=== PATIENT | male | born 1940 | race Caucasian/White ===

== ENCOUNTER 2016-08-11 14:45 | Emergency (ER) | payer OTHER ==
--- NOTE | 2016-08-11 16:22 | DIAGNOSTIC IMAGING REPORT ---
PROCEDURE: XR CHEST 1 VIEW INDICATION: CHEST PAIN TECHNIQUE: Portable AP view 04:06 p.m. COMPARISON: Chest 09/23/2012 FINDINGS: Lungs are clear. Heart and mediastinum are normal. Thorax is normal. IMPRESSION: 1. Negative chest.
--- NOTE | 2016-08-11 17:08 | ED NURSING NOTES ---
Clinical Report - Nurses [facility] [address] [place] [address] 08/11/2016 14:46 Patient: TAISHA CARDONA TRIAGE Triage time 14:48 Aug 11 2016. Acuity: LEVEL 2. --14:49 Anette Gilman R.N. Acuity: LEVEL 2. Chief Complaint: CHEST PAIN and DISCOMFORT. Alert. No acute distress. (anxious, swearing). --15:08 Anette Gilman R.N. 14:55 08/11/16. BP: 153/102. HR: 66. RR: 18. O2 saturation: 99%. Temp: 98.2 F. Pain level now 6/10. --15:08 Anette Gilman R.N. 15:45 08/11/16. BP: 194/77. HR: 56. RR: 16. O2 saturation: 98% on room air. Temp: deferred. Pain level now: 5/10. Additional comments: 5 now, was a 10 at home about 1 hour ago . --15:59 Milly Lira R.N. Weight: 90.7 kg stated. Height/Length: 71 inches Per Patient. BMI: 27.9. --14:48 Anette Gilman R.N. Medications ASA Oral 81mg, daily. Atenolol Oral 100 mg, daily. Benazepril HCl Oral 5 mg daily. Cacitrol 25 mg capsules, 2 caps daily. CoQ-10 Oral 1 daily. Furosemide Oral 20 mg, 3 tabs, daily. GuanFACINE HCl Oral (Tablet 2 mg) 1 tablet. HCTZ 25mg, daily. Lipitor Oral 20 mg, at bedtime. Potassimin Oral 14 tabs, 10meq/tab, daily (pt states he doesnt take them all the time). Pt poor historian.. Urolic 1.5 tabs of 80mg/tab, daily. Vitamin D Oral (Tablet 1000 unit) 1 tablet, daily. --14:52 Anette Gilman R.N. Zetia Oral (Tablet 10 mg) 1 tablet, daily. --14:52 Anette Gilman R.N. GuanFACINE HCl Oral (Tablet 2 mg). --15:06 Anette Gilman R.N. zoloft 25mg BID. --15:57 Milly Lira R.N. (med list up to date). --15:08 Anette Gilman R.N. Allergies morphine. --14:54 Anette Gilman R.N. History Arrived by private vehicle. --14:49 Anette Gilman R.N. Primary physician (Dr. hCapman, Cardiology /Dr. Mccarty is PCP). 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 Changed BP meds. Has had a Halter monitor in the passed. Today, CP started about 1430, watching TV, no activity. Sudden onset on the Left Pectoral Pain, 12/10. 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 This started just prior to arrival. He has had difficulty breathing. Treatment SALES OPERATIONS ASSISTANT: Took aspirin. (81mg SALES OPERATIONS ASSISTANT). SOCIAL HX: Never smoker. No alcohol use or drug use. FALL RISK ASSESSMENT: Fall risk assessment completed. No fall risk identified. NUTRITIONAL RISK ASSESSMENT: The nutritional risk assessment revealed no deficiencies. FUNCTIONAL ASSESSMENT: Functional assessment: no impairments noted. LEARNING NEEDS ASSESSMENT: The learning needs assessment revealed no barriers. SKIN INTEGRITY ASSESSMENT: Skin integrity risk assessment completed. No skin integrity risk identified. --15:08 Anette Gilman R.N. ( Pt has had significant work up over last 2 months with Negative echo and negative stress test). --15:59 Milly Lira R.N. ( Pt states symptoms have gotten worse since medication was changed). --16:01 Milly Lira R.N. PROBLEMS: Hyperlipidemia. Chronic Kidney. Exertional Chest Pain. --14:57 Anette Gilman R.N. Interventions ID band on patient. To room. --14:49 Anette Gilman R.N. ID band on patient. To room. --15:08 Anette Gilman R.N. NURSING PROGRESS NOTES EKG time: (14:53 PM). --15:10 Anette Gilman R.N. Blood samples drawn by lab per protocol: rainbow set. --15:11 Anette Gilman R.N. ( pt's blood drawn while in triage.). --15:11 Anette Gilman R.N. 15:11 08/11/16. BP: 198/100. --15:11 Anette Gilman R.N. EKG time: (0243). EKG was performed by a tech and shown to the ED physician. --15:15 Lance Lan. DISPOSITION / DISCHARGE 17:20. Condition at departure: improved and stable. No learning barriers present. Discharge instructions provided and reviewed with the patient and spouse. Reviewed medication(s) (tramadol). Patient and spouse verbalized understanding. Written instructions provided in Upper Sorbian. The patient was discharged home and accompanied by spouse. He left the Emergency Department ambulatory and via private vehicle. Spouse driving. --17:30 Milly Lira R.N. 17:20 08/11/16. BP: 179/79. HR: 52. RR: 18. O2 saturation: 100%. Temp: deferred. Pain level now: 11/09. --17:30 Milly Lira R.N. Departure time: 17:52 Aug 11 2016. --17:52 Anette Gilman R.N. Locked/Released at 08/11/2016 17:52 by Anette Gilman R.N.
--- NOTE | 2016-08-11 17:08 | ED ORDER SUMMARY ---
..... Patient: TAISHA CARDONA OrderSheet [facility] VisitID: [id number] [place] [address] 76y, M Registration Date/Time: 08/11/2016 ORDER SHEET Weight: 90.7 kg (stated) Allergies: morphine GENERAL ORDERS: Dead Mail Checker (Continuous) (15:10 08/11/2016 SBalde R.N. per protocol) (Ack 15:13 TBergley) (15:56 DDean R.N.) Cardiac Panel Stat (15:10 08/11/2016 SBalde R.N. per protocol) (Ack 15:13 TBergley) (15:13 TBergley) Pulse oximeter (15:10 08/11/2016 SBalde R.N. per protocol) (Ack 15:13 TBergley) (15:56 DDean R.N.) EKG - ER Stat (15:10 08/11/2016 SBalde R.N. per protocol) (15:12 TBergley) Chest 1V Urgent (16:00 08/11/2016 DDean R.N. per protocol) (Ack 16:04 TBergley) (16:45 TBergley) MEDICATION ORDERS: IV FLUIDS: ORDER SHEET NOTES: [Electronically signed by Anette Gilman R.N. (17:52 08/11/2016)] [Electronically signed by Huber Warner Dr[address] (22:26 08/11/2016)] [Electronically locked/signed by Anette Gilman R.N. (17:52 08/11/2016)]
--- NOTE | 2016-08-11 17:08 | ED ORDER SUMMARY ---
..... Patient: TAISHA CARDONA OrderSheet [facility] VisitID: [id number] [place] [address] 76y, M Registration Date/Time: 08/11/2016 ORDER SHEET Weight: 90.7 kg (stated) Allergies: morphine GENERAL ORDERS: Rotary Drier Operator (Continuous) (15:10 08/11/2016 SBalde R.N. per protocol) (Ack 15:13 TBergley) (15:56 DDean R.N.) Cardiac Panel Stat (15:10 08/11/2016 SBalde R.N. per protocol) (Ack 15:13 TBergley) (15:13 TBergley) Pulse oximeter (15:10 08/11/2016 SBalde R.N. per protocol) (Ack 15:13 TBergley) (15:56 DDean R.N.) EKG - ER Stat (15:10 08/11/2016 SBalde R.N. per protocol) (15:12 TBergley) Chest 1V Urgent (16:00 08/11/2016 DDean R.N. per protocol) (Ack 16:04 TBergley) (16:45 TBergley) MEDICATION ORDERS: IV FLUIDS: ORDER SHEET NOTES: [Electronically signed by Anette Gilman R.N. (17:52 08/11/2016)] [Electronically signed by Huber Warner Dr[address] (22:26 08/11/2016)] [Electronically locked/signed by Anette Gilman R.N. (17:52 08/11/2016)]
--- NOTE | 2016-08-11 17:08 | ED NURSING NOTES ---
Clinical Report - Nurses [facility] [address] [place] [address] 08/11/2016 14:46 Patient: TAISHA CARDONA TRIAGE Triage time 14:48 Aug 11 2016. Acuity: LEVEL 2. --14:49 Anette Gilman R.N. Acuity: LEVEL 2. Chief Complaint: CHEST PAIN and DISCOMFORT. Alert. No acute distress. (anxious, swearing). --15:08 Anette Gilman R.N. 14:55 08/11/16. BP: 153/102. HR: 66. RR: 18. O2 saturation: 99%. Temp: 98.2 F. Pain level now 6/10. --15:08 Anette Gilman R.N. 15:45 08/11/16. BP: 194/77. HR: 56. RR: 16. O2 saturation: 98% on room air. Temp: deferred. Pain level now: 5/10. Additional comments: 5 now, was a 10 at home about 1 hour ago . --15:59 Milly Lira R.N. Weight: 90.7 kg stated. Height/Length: 71 inches Per Patient. BMI: 27.9. --14:48 Anette Gilman R.N. Medications ASA Oral 81mg, daily. Atenolol Oral 100 mg, daily. Benazepril HCl Oral 5 mg daily. Cacitrol 25 mg capsules, 2 caps daily. CoQ-10 Oral 1 daily. Furosemide Oral 20 mg, 3 tabs, daily. GuanFACINE HCl Oral (Tablet 2 mg) 1 tablet. HCTZ 25mg, daily. Lipitor Oral 20 mg, at bedtime. Potassimin Oral 14 tabs, 10meq/tab, daily (pt states he doesnt take them all the time). Pt poor historian.. Urolic 1.5 tabs of 80mg/tab, daily. Vitamin D Oral (Tablet 1000 unit) 1 tablet, daily. --14:52 Anette Gilman R.N. Zetia Oral (Tablet 10 mg) 1 tablet, daily. --14:52 Anette Gilman R.N. GuanFACINE HCl Oral (Tablet 2 mg). --15:06 Anette Gilman R.N. zoloft 25mg BID. --15:57 Milly Lira R.N. (med list up to date). --15:08 Anette Gilman R.N. Allergies morphine. --14:54 Anette Gilman R.N. History Arrived by private vehicle. --14:49 Anette Gilman R.N. Primary physician (Dr. Chapman, Cardiology /Dr. Mccarty is PCP). 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 Changed BP meds. Has had a Halter monitor in the passed. Today, CP started about 1430, watching TV, no activity. Sudden onset on the Left Pectoral Pain, 12/10. 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 This started just prior to arrival. He has had difficulty breathing. Treatment FULL STACK ENGINEER: Took aspirin. (81mg FULL STACK ENGINEER). SOCIAL HX: Never smoker. No alcohol use or drug use. FALL RISK ASSESSMENT: Fall risk assessment completed. No fall risk identified. NUTRITIONAL RISK ASSESSMENT: The nutritional risk assessment revealed no deficiencies. FUNCTIONAL ASSESSMENT: Functional assessment: no impairments noted. LEARNING NEEDS ASSESSMENT: The learning needs assessment revealed no barriers. SKIN INTEGRITY ASSESSMENT: Skin integrity risk assessment completed. No skin integrity risk identified. --15:08 Anette Gilman R.N. ( Pt has had significant work up over last 2 months with Negative echo and negative stress test). --15:59 Milly Lira R.N. ( Pt states symptoms have gotten worse since medication was changed). --16:01 Milly Lira R.N. PROBLEMS: Hyperlipidemia. Chronic Kidney. Exertional Chest Pain. --14:57 Anette Gilman R.N. Interventions ID band on patient. To room. --14:49 Anette Gilman R.N. ID band on patient. To room. --15:08 Anette Gilman R.N. NURSING PROGRESS NOTES EKG time: (14:53 PM). --15:10 Anette Gilman R.N. Blood samples drawn by lab per protocol: rainbow set. --15:11 Anette Gilman R.N. ( pt's blood drawn while in triage.). --15:11 Anette Gilman R.N. 15:11 08/11/16. BP: 198/100. --15:11 Anette Gilman R.N. EKG time: (1483). EKG was performed by a tech and shown to the ED physician. --15:15 Lance Lan. DISPOSITION / DISCHARGE 17:20. Condition at departure: improved and stable. No learning barriers present. Discharge instructions provided and reviewed with the patient and spouse. Reviewed medication(s) (tramadol). Patient and spouse verbalized understanding. Written instructions provided in Nepali. The patient was discharged home and accompanied by spouse. He left the Emergency Department ambulatory and via private vehicle. Spouse driving. --17:30 Milly Lira R.N. 17:20 08/11/16. BP: 179/79. HR: 52. RR: 18. O2 saturation: 100%. Temp: deferred. Pain level now: 11/09. --17:30 Milly Lira R.N. Departure time: 17:52 Aug 11 2016. --17:52 Anette Gilman R.N. Locked/Released at 08/11/2016 17:52 by Anette Gilman R.N.
--- NOTE | 2016-08-11 17:08 | ED CLINICAL REPORT ---
Clinical Report - Physicians/Mid Levels [facility] [address] [place] [address] 08/11/2016 14:46 Patient: TAISHA CARDONA Time Seen: 16:35; initial patient contact. Arrived- By private vehicle. Historian- patient. HISTORY OF PRESENT ILLNESS Chief Complaint: CHEST PAIN. At its maximum, severity described as moderate. When seen in the E.D., severity described as mild. It is described as "pain" and it is described as located in the left chest area. No radiation. This started today and is still present. No nausea, vomiting, difficulty breathing or diaphoresis. No additional chest pain. Similar symptoms previously: Once. Recent medical care: The patient was seen recently and hospitalized. ( Prov 1 week ago, normal nuclear stress and echo.). REVIEW OF SYSTEMS No cough, pedal edema, calf pain, fainting episodes or abdominal pain. All systems otherwise negative, except as recorded above. PAST HISTORY Hyperlipidemia. Chronic Kidney. Exertional Chest Pain. --. Medications: zoloft 25mg BID. GuanFACINE HCl Oral (Tablet 2 mg). Zetia Oral (Tablet 10 mg) 1 tablet, daily. ASA Oral 81mg, daily. Atenolol Oral 100 mg, daily. Benazepril HCl Oral 5 mg daily. Cacitrol 25 mg capsules, 2 caps daily. CoQ-10 Oral 1 daily. Furosemide Oral 20 mg, 3 tabs, daily. GuanFACINE HCl Oral (Tablet 2 mg) 1 tablet. HCTZ 25mg, daily. Lipitor Oral 20 mg, at bedtime. Potassimin Oral 14 tabs, 10meq/tab, daily (pt states he doesnt take them all the time). Pt poor historian.. Urolic 1.5 tabs of 80mg/tab, daily. Vitamin D Oral (Tablet 1000 unit) 1 tablet, daily. Allergies: morphine. SOCIAL HISTORY Never smoker. No alcohol use or drug use. ADDITIONAL NOTES The nursing notes have been reviewed with agreement regarding the chief complaint, PMH and patient medications and allergies. PHYSICAL EXAM Vital Signs: 08/11/2016 14:55 BP: 153/102. HR: 66. RR: 18. O2 saturation: 99%. Temp: 98.2 F. Have been reviewed. Hypertensive. Tachycardic. Respiratory rate normal. Temperature normal. Oxygen saturation normal. Appearance: Alert. Oriented X3. No acute distress. Eyes: Eyes normal inspection. ENT: Pharynx normal. CVS: Normal heart rate and rhythm. Heart sounds normal. Respiratory: Chest pain reproducible with palpation of the costochondral junction. Mild left upper costochondral tenderness. Abdomen: Soft and nontender. Bowel sounds normal. Skin: Skin warm and dry. Normal skin color. No rash. Extremities: No calf tenderness. No lower extremity edema. Neuro: Oriented X 3. LABS, X-RAYS, AND EKG EKG: EKG time: (1453). No acute process. No acute ischemia. Normal EKG. Normal sinus rhythm. Rate: 63. Normal P waves. Normal MUKESH. Normal QRS complex. Normal axis. Normal ST and T waves and QT. Prior EKG unavailable. The study has been interpreted contemporaneously by me. The study has been independently viewed by me. The EKG appears to be a good tracing. Interpretation time: 1453. Chest X-ray: No acute disease. Normal lung markings present. No infiltrate. Views: AP. The X-rays were independently viewed by me and interpreted contemporaneously by me. A comparison with prior films reveals that the findings are unchanged. Laboratory Tests: CBC w Diff: (AQUILES: 08/11/2016 14:56) ( MsgRcvd 08/11/2016 15:20) Final results Test Result Flag Units (Reference) WHITE BLOOD COUNT 7.6 K/uL (4.5-11.5) RED BLOOD COUNT 5.39 M/uL (4.50-5.90) HEMOGLOBIN 16.0 gm/dL (13.5-17.5) HEMATOCRIT 48.4 % (41.0-53.0) MEAN CELL VOLUME 90 fL (80-100) MEAN CORPUSCULAR HGB 30 pg (26-34) MEAN CORPUSCULAR HGB CONC 33 g/dL (31-37) RED CELL DISTRIBUTION WIDTH 13.8 % (11.6-14.8) PLATELET COUNT 256 K/uL (150-400) LYMPH % 32.4 % (25-40) MONO % 5.8 % (3-14) GRANULOCYTE % 61.8 CHEM 13 PANEL: (AQUILES: 08/11/2016 14:56) ( MsgRcvd 08/11/2016 15:33) Final results Test Result Flag Units (Reference) GLUCOSE 137 H mg/dL (70-110) BUN 24 H mg/dL (7-18) CREATININE 1.4 H mg/dL (0.6-1.3) Estimated GFR 52.51 mL/min Estimated GFR- >60 mL/min Note: Persistent reduction over 3 months in eGFR<60 mL/min/1.73 m2 defines CKD. Patients with eGFR values>=60 mL/min/1.73 m2 may also have CKD if evidence ofpersistent proteinuria. Additional information may be foundat www.kidney.org. SODIUM 143 mmol/L (136-145) POTASSIUM 3.7 mmol/L (3.5-5.1) CHLORIDE 107 mmol/L (98-107) CARBON DIOXIDE 23 mmol/L (21-32) CALCIUM 9.3 mg/dL (8.5-10.1) TOTAL PROTEIN 7.3 g/dL (6.4-8.2) ALBUMIN 4.4 g/dL (3.3-5.0) BILIRUBIN, TOTAL 0.8 mg/dL (0.0-1.0) ALKALINE PHOSPHATASE 66 U/L (46-116) AST (SGOT) 24 U/L (15-37) ALT (SGPT) 52 U/L (12-78) CPK 79 U/L (24-260) MAGNESIUM 2.2 mg/dL (1.8-2.4) TROPONIN I <0.05 L ng/mL (0.00-1.5) TROPONIN REFERENCE RANGE:<0.1 NEGATIVE0.1-1.5 INDETERMINANT>1.5 POSITIVE . PROGRESS AND PROCEDURES Disposition: Discharged home in good condition. Condition: good. CLINICAL IMPRESSION Costochondritis .12 lead EKG performed. INSTRUCTIONS Your Current Medications: CONTINUE TAKING THE FOLLOWING MEDICATIONS: ASA Oral : 81mg daily. Atenolol Oral : 100 mg daily. Benazepril HCl Oral : 5 mg daily. Cacitrol* : 25 mg capsules, 2 caps daily. CoQ-10 Oral : 1 daily. Furosemide Oral : 20 mg, 3 tabs daily. GuanFACINE HCl Oral : Tablet 2 mg, 1 tablet. GuanFACINE HCl Oral : Tablet 2 mg. HCTZ* : 25mg daily. Lipitor Oral : 20 mg at bedtime. Potassimin Oral : 14 tabs, 10meq/tab daily, pt states he doesnt take them all the time. Pt poor historian.*. Urolic* : 1.5 tabs of 80mg/tab daily. Vitamin D Oral : Tablet 1000 unit, 1 tablet daily. Zetia Oral : Tablet 10 mg, 1 tablet daily. zoloft 25mg BID*. Prescription Medications: Tramadol 50 mg: take 1 orally every 6 hours as needed for pain. Do not take more than 8 tablets in a 24 hour period. Dispense twenty (20). No refills. Follow-up: Blood pressure screening was not performed during this visit because the patient has an active diagnosis of hypertension. (Electronically signed by Huber Warner Dr. 08/11/2016 22:26)
--- NOTE | 2016-08-11 22:26 | ED DISCHARGE INSTRUCTIONS ---
Patient: TAISHA CARDONA General Instructions [facility] VisitID: [id number] [place] [address] 76y, M Registration Date/Time: 08/11/2016 Costochondritis .12 lead EKG performed. INSTRUCTIONS Your Current Medications: CONTINUE TAKING THE FOLLOWING MEDICATIONS: ASA Oral : 81mg daily. Atenolol Oral : 100 mg daily. Benazepril HCl Oral : 5 mg daily. Cacitrol* : 25 mg capsules, 2 caps daily. CoQ-10 Oral : 1 daily. Furosemide Oral : 20 mg, 3 tabs daily. GuanFACINE HCl Oral : Tablet 2 mg, 1 tablet. GuanFACINE HCl Oral : Tablet 2 mg. HCTZ* : 25mg daily. Lipitor Oral : 20 mg at bedtime. Potassimin Oral : 14 tabs, 10meq/tab daily, pt states he doesnt take them all the time. Pt poor historian.*. Urolic* : 1.5 tabs of 80mg/tab daily. Vitamin D Oral : Tablet 1000 unit, 1 tablet daily. Zetia Oral : Tablet 10 mg, 1 tablet daily. zoloft 25mg BID*. Prescription Medications: Tramadol 50 mg: take 1 orally every 6 hours as needed for pain. Do not take more than 8 tablets in a 24 hour period. Dispense twenty (20). No refills. Follow-up: Blood pressure screening was not performed during this visit because the patient has an active diagnosis of hypertension. ADDITIONAL INFORMATION Tramadol Hydrochloride Oral tablet What is this medicine? TRAMADOL (TRA ma dole) is a pain reliever. It is used to treat moderate to severe pain in adults. How should I use this medicine? Take this medicine by mouth with a full glass of water. Follow the directions on the prescription label. If the medicine upsets your stomach, take it with food or milk. Do not take more medicine than you are told to take. Talk to your television maintenance man regarding the use of this medicine in children. Special care may be needed. What side effects may I notice from receiving this medicine? Side effects that you should report to your doctor or health manager critical care as soon as possible: allergic reactions like skin rash, itching or hives, swelling of the face, lips, or tongue breathing difficulties, wheezing confusion itching light headedness or fainting spells redness, blistering, peeling or loosening of the skin, including inside the mouth seizures Side effects that usually do not require medical attention (report to your doctor or health manager critical care if they continue or are bothersome): constipation dizziness drowsiness headache nausea, vomiting What may interact with this medicine? Do not take this medicine with any of the following medications: MAOIs like Carbex, Eldepryl, Marplan, Nardil, and Parnate This medicine may also interact with the following medications: alcohol or medicines that contain alcohol antihistamines benzodiazepines bupropion carbamazepine or oxcarbazepine clozapine cyclobenzaprine digoxin furazolidone linezolid medicines for depression, anxiety, or psychotic disturbances medicines for migraine headache like almotriptan, eletriptan, frovatriptan, naratriptan, rizatriptan, sumatriptan, zolmitriptan medicines for pain like pentazocine, buprenorphine, butorphanol, meperidine, nalbuphine, and propoxyphene medicines for sleep muscle relaxants naltrexone phenobarbital phenothiazines like perphenazine, thioridazine, chlorpromazine, mesoridazine, fluphenazine, prochlorperazine, promazine, and trifluoperazine procarbazine warfarin What if I miss a dose? If you miss a dose, take it as soon as you can. If it is almost time for your next dose, take only that dose. Do not take double or extra doses. Where should I keep my medicine? Keep out of the reach of children. Store at room temperature between 15 and 30 degrees C (59 and 86 degrees F). Keep container tightly closed. Throw away any unused medicine after the expiration date. What should I tell my health care provider before I take this medicine? They need to know if you have any of these conditions: brain tumor depression drug abuse or addiction head injury if you frequently drink alcohol containing drinks kidney disease or trouble passing urine liver disease lung disease, asthma, or breathing problems seizures or epilepsy suicidal thoughts, plans, or attempt; a previous suicide attempt by you or a family member an unusual or allergic reaction to tramadol, codeine, other medicines, foods, dyes, or preservatives or trying to get breast-feeding What should I watch for while using this medicine? Tell your doctor or health manager critical care if your pain does not go away, if it gets worse, or if you have new or a different type of pain. You may develop tolerance to the medicine. Tolerance means that you will need a higher dose of the medicine for pain relief. Tolerance is normal and is expected if you take this medicine for a long time. Do not suddenly stop taking your medicine because you may develop a severe reaction. Your body becomes used to the medicine. This does NOT mean you are addicted. Addiction is a behavior related to getting and using a drug for a non-medical reason. If you have pain, you have a medical reason to take pain medicine. Your doctor will tell you how much medicine to take. If your doctor wants you to stop the medicine, the dose will be slowly lowered over time to avoid any side effects. You may get drowsy or dizzy. Do not drive, use machinery, or do anything that needs mental alertness until you know how this medicine affects you. Do not stand or sit up quickly, especially if you are an older patient. This reduces the risk of dizzy or fainting spells. Alcohol can increase or decrease the effects of this medicine. Avoid alcoholic drinks. You may have constipation. Try to have a bowel movement at least every 2 to 3 days. If you do not have a bowel movement for 3 days, call your doctor or health manager critical care. Your mouth may get dry. Chewing sugarless gum or sucking hard candy, and drinking plenty of water may help. Contact your doctor if the problem does not go away or is severe. You have been given the following additional information: Tramadol Hydrochloride Oral tablet (Electronically signed by Huber Warner Dr. 08/11/2016 22:26)
--- NOTE | 2016-08-11 22:26 | ED MED RECONCILIATION SUMMARY ---
Patient: TAISHA CARDONA Medication Reconciliation Report [facility] VisitID: [id number] [address] [place] [address] 76y, M Registration Date/Time: 08/11/2016 Weight: 90.7 kg Height/Length: 71 in. BMI: 27.9 ALLERGIES: morphine The patient's Home Medications are listed below: CONTINUE TAKING THE FOLLOWING MEDICATIONS: ASA Oral 81mg, daily Atenolol Oral 100 mg, daily Benazepril HCl Oral 5 mg daily Cacitrol 25 mg capsules, 2 caps daily CoQ-10 Oral 1 daily Furosemide Oral 20 mg, 3 tabs, daily GuanFACINE HCl Oral (2 mg) 1 tablet GuanFACINE HCl Oral (2 mg) HCTZ 25mg, daily Lipitor Oral 20 mg, at bedtime Potassimin Oral 14 tabs, 10meq/tab, daily, pt states he doesnt take them all the time Pt poor historian. Urolic 1.5 tabs of 80mg/tab, daily Vitamin D Oral (1000 unit) 1 tablet, daily Zetia Oral (10 mg) 1 tablet, daily zoloft 25mg BID The source(s) of the original Home Medication information: med list up to date The following Medications were given to the patient in the Emergency Department: None. The following Medications were prescribed to the patient: Tramadol 50 mg: take 1 orally every 6 hours as needed for pain. Do not take more than 8 tablets in a 24 hour period. Dispense twenty (20). No refills. -- Huber Warner Dr[address]
--- NOTE | 2016-08-11 22:26 | ED MAR SUMMARY ---
..... Medication Administration Record [facility] [address] [place], [place] [id number] Patient: TAISHA CARDONA Visit ID: [id number] 76y, M Weight: 90.7 kg Height/Length: 71 in BMI: 27.9 ALLERGIES: morphine
--- NOTE | 2016-08-11 22:26 | ED DISCHARGE INSTRUCTIONS ---
Patient: TAISHA CARDONA General Instructions [facility] VisitID: [id number] [place] [address] 76y, M Registration Date/Time: 08/11/2016 Costochondritis .12 lead EKG performed. INSTRUCTIONS Your Current Medications: CONTINUE TAKING THE FOLLOWING MEDICATIONS: ASA Oral : 81mg daily. Atenolol Oral : 100 mg daily. Benazepril HCl Oral : 5 mg daily. Cacitrol* : 25 mg capsules, 2 caps daily. CoQ-10 Oral : 1 daily. Furosemide Oral : 20 mg, 3 tabs daily. GuanFACINE HCl Oral : Tablet 2 mg, 1 tablet. GuanFACINE HCl Oral : Tablet 2 mg. HCTZ* : 25mg daily. Lipitor Oral : 20 mg at bedtime. Potassimin Oral : 14 tabs, 10meq/tab daily, pt states he doesnt take them all the time. Pt poor historian.*. Urolic* : 1.5 tabs of 80mg/tab daily. Vitamin D Oral : Tablet 1000 unit, 1 tablet daily. Zetia Oral : Tablet 10 mg, 1 tablet daily. zoloft 25mg BID*. Prescription Medications: Tramadol 50 mg: take 1 orally every 6 hours as needed for pain. Do not take more than 8 tablets in a 24 hour period. Dispense twenty (20). No refills. Follow-up: Blood pressure screening was not performed during this visit because the patient has an active diagnosis of hypertension. ADDITIONAL INFORMATION Tramadol Hydrochloride Oral tablet What is this medicine? TRAMADOL (TRA ma dole) is a pain reliever. It is used to treat moderate to severe pain in adults. How should I use this medicine? Take this medicine by mouth with a full glass of water. Follow the directions on the prescription label. If the medicine upsets your stomach, take it with food or milk. Do not take more medicine than you are told to take. Talk to your band bias machine operator regarding the use of this medicine in children. Special care may be needed. What side effects may I notice from receiving this medicine? Side effects that you should report to your doctor or health adult care provider as soon as possible: allergic reactions like skin rash, itching or hives, swelling of the face, lips, or tongue breathing difficulties, wheezing confusion itching light headedness or fainting spells redness, blistering, peeling or loosening of the skin, including inside the mouth seizures Side effects that usually do not require medical attention (report to your doctor or health adult care provider if they continue or are bothersome): constipation dizziness drowsiness headache nausea, vomiting What may interact with this medicine? Do not take this medicine with any of the following medications: MAOIs like Carbex, Eldepryl, Marplan, Nardil, and Parnate This medicine may also interact with the following medications: alcohol or medicines that contain alcohol antihistamines benzodiazepines bupropion carbamazepine or oxcarbazepine clozapine cyclobenzaprine digoxin furazolidone linezolid medicines for depression, anxiety, or psychotic disturbances medicines for migraine headache like almotriptan, eletriptan, frovatriptan, naratriptan, rizatriptan, sumatriptan, zolmitriptan medicines for pain like pentazocine, buprenorphine, butorphanol, meperidine, nalbuphine, and propoxyphene medicines for sleep muscle relaxants naltrexone phenobarbital phenothiazines like perphenazine, thioridazine, chlorpromazine, mesoridazine, fluphenazine, prochlorperazine, promazine, and trifluoperazine procarbazine warfarin What if I miss a dose? If you miss a dose, take it as soon as you can. If it is almost time for your next dose, take only that dose. Do not take double or extra doses. Where should I keep my medicine? Keep out of the reach of children. Store at room temperature between 15 and 30 degrees C (59 and 86 degrees F). Keep container tightly closed. Throw away any unused medicine after the expiration date. What should I tell my health care provider before I take this medicine? They need to know if you have any of these conditions: brain tumor depression drug abuse or addiction head injury if you frequently drink alcohol containing drinks kidney disease or trouble passing urine liver disease lung disease, asthma, or breathing problems seizures or epilepsy suicidal thoughts, plans, or attempt; a previous suicide attempt by you or a family member an unusual or allergic reaction to tramadol, codeine, other medicines, foods, dyes, or preservatives or trying to get breast-feeding What should I watch for while using this medicine? Tell your doctor or health adult care provider if your pain does not go away, if it gets worse, or if you have new or a different type of pain. You may develop tolerance to the medicine. Tolerance means that you will need a higher dose of the medicine for pain relief. Tolerance is normal and is expected if you take this medicine for a long time. Do not suddenly stop taking your medicine because you may develop a severe reaction. Your body becomes used to the medicine. This does NOT mean you are addicted. Addiction is a behavior related to getting and using a drug for a non-medical reason. If you have pain, you have a medical reason to take pain medicine. Your doctor will tell you how much medicine to take. If your doctor wants you to stop the medicine, the dose will be slowly lowered over time to avoid any side effects. You may get drowsy or dizzy. Do not drive, use machinery, or do anything that needs mental alertness until you know how this medicine affects you. Do not stand or sit up quickly, especially if you are an older patient. This reduces the risk of dizzy or fainting spells. Alcohol can increase or decrease the effects of this medicine. Avoid alcoholic drinks. You may have constipation. Try to have a bowel movement at least every 2 to 3 days. If you do not have a bowel movement for 3 days, call your doctor or health adult care provider. Your mouth may get dry. Chewing sugarless gum or sucking hard candy, and drinking plenty of water may help. Contact your doctor if the problem does not go away or is severe. You have been given the following additional information: Tramadol Hydrochloride Oral tablet (Electronically signed by Huber Warner Dr. 08/11/2016 22:26)
--- NOTE | 2016-08-11 22:26 | ED MED RECONCILIATION SUMMARY ---
Patient: TAISHA CARDONA Medication Reconciliation Report [facility] VisitID: [id number] [address] [place] [address] 76y, M Registration Date/Time: 08/11/2016 Weight: 90.7 kg Height/Length: 71 in. BMI: 27.9 ALLERGIES: morphine The patient's Home Medications are listed below: CONTINUE TAKING THE FOLLOWING MEDICATIONS: ASA Oral 81mg, daily Atenolol Oral 100 mg, daily Benazepril HCl Oral 5 mg daily Cacitrol 25 mg capsules, 2 caps daily CoQ-10 Oral 1 daily Furosemide Oral 20 mg, 3 tabs, daily GuanFACINE HCl Oral (2 mg) 1 tablet GuanFACINE HCl Oral (2 mg) HCTZ 25mg, daily Lipitor Oral 20 mg, at bedtime Potassimin Oral 14 tabs, 10meq/tab, daily, pt states he doesnt take them all the time Pt poor historian. Urolic 1.5 tabs of 80mg/tab, daily Vitamin D Oral (1000 unit) 1 tablet, daily Zetia Oral (10 mg) 1 tablet, daily zoloft 25mg BID The source(s) of the original Home Medication information: med list up to date The following Medications were given to the patient in the Emergency Department: None. The following Medications were prescribed to the patient: Tramadol 50 mg: take 1 orally every 6 hours as needed for pain. Do not take more than 8 tablets in a 24 hour period. Dispense twenty (20). No refills. -- Huber Warner Dr.
--- NOTE | 2016-08-11 22:26 | ED MAR SUMMARY ---
..... Medication Administration Record [facility] [address] [place], [place] [id number] Patient: TAISHA CARDONA Visit ID: [id number] 76y, M Weight: 90.7 kg Height/Length: 71 in BMI: 27.9 ALLERGIES: morphine
== END 2016-08-11 17:50 | disposition home or self-care (01) ==
LOC: ED SRH 14:45
DX: M94.0 Chondrocostal junction syndrome [Tietze] (principal); E78.5 Hyperlipidemia, unspecified; Z79.82 Long term (current) use of aspirin; Z79.899 Other long term (current) drug therapy; Z88.5 Allergy status to narcotic agent
CPT/HCPCS: 90100; 90616; 92610; 92720; 95059

== ENCOUNTER 2016-08-20 19:07 | Emergency (ER) | payer OTHER ==
--- NOTE | 2016-08-20 20:03 | ED ORDER SUMMARY ---
..... Patient: TAISHA CARDONA OrderSheet [facility] VisitID: [id number] [address] [place] [address] 76y, M Registration Date/Time: 08/20/2016 ORDER SHEET Weight: 89.8 kg (stated) Allergies: morphine GENERAL ORDERS: MEDICATION ORDERS: Hydrocodone-APAP PO 7.5/325 mg (NOW, HIGH ALERT MEDICATION) (19:54 08/20/2016 Robert Cardoza) [place] [facility] [facility] [place] [facility] [facility] [place] FLUIDS: ORDER SHEET NOTES: [Electronically signed by Huber Warner Dr. (20:12 08/20/2016)] [Electronically signed by Delmi Lozano (20:14 08/20/2016)] [Electronically locked/signed by Delmi Lozano (20:14 08/20/2016)]
--- NOTE | 2016-08-20 20:03 | ED ORDER SUMMARY ---
..... Patient: TAISHA CARDONA OrderSheet [facility] VisitID: [id number] [address] [place] [address] 76y, M Registration Date/Time: 08/20/2016 ORDER SHEET Weight: 89.8 kg (stated) Allergies: morphine GENERAL ORDERS: MEDICATION ORDERS: Hydrocodone-APAP PO 7.5/325 mg (NOW, HIGH ALERT MEDICATION) (19:54 08/20/2016 Robert Cardoza) ([place]ck [place] [facility] [facility] [place] ([place] [facility] [place] IV FLUIDS: ORDER SHEET NOTES: [Electronically signed by Huber Warner Dr. (20:12 08/20/2016)] [Electronically signed by Delmi Lozano (20:14 08/20/2016)] [Electronically locked/signed by Delmi Lozano (20:14 08/20/2016)]
--- NOTE | 2016-08-20 20:03 | ED NURSING NOTES ---
Clinical Report - Nurses [facility] [address] [place] [address] 08/20/2016 19:07 Patient: TAISHA CARDONA TRIAGE Triage time 19:15 Aug 20 2016. Acuity: LEVEL 3. Chief Complaint: CHEST PAIN. :08/20/16. Alert. No acute distress. SEPSIS SCREEN: Sepsis Screen. Negative (no infection suspected/documented). DEIRDRE COMA SCORE: Deirdre Coma Scale: 15- eyes open spontaneously (4); best verbal response- oriented x 4 (5); best motor response- obeys commands (6). --19:26 Delmi Lozano :08/20/16. BP: 164/67. HR: 50. RR: 16. O2 saturation: 98%. Temp: 98.1 F. Pain level now 5/10. --19:26 Delmi Lozano. Weight: 89.8 kg stated. Height/Length: 71 inches Per Patient. BMI: 27.6. --19:25 Delmi Lozano. Medications HydrALAZINE HCl Oral (Tablet 50 mg), 3xdaily. --19:20 Delmi Lozano Aspirin Oral (Tablet Chewable 81 mg), daily. --19:20 Delmi Lozano Calcitriol Oral (Capsule 0.5 mcg), daily. --19:20 Delmi Lozano Phospha 250 Neutral Oral 750 mg, daily. --19:21 Delmi Lozano Potassium Oral 60 mEq. --19:21 Delmi Lozano Vitamin D-3 Oral. --19:21 Delmi Lozano Spironolactone Oral 25 mg, daily. --19:21 Delmi Lozano Zoloft Oral 100 mg, daily. --19:21 Delmi Lozano Lisinopril Oral 40 mg, daily. --19:21 Delmi Lozano Furosemide Oral 20 mg, daily. --19:22 Delmi Lozano AmLODIPine Besylate Oral 15 mg. --19:22 Delmi Lozano GuaiFENesin ER Oral 2 mg. --19:22 Delmi Lozano Ezetimibe Oral (Tablet 10 mg) 1 tablet. --19:22 Delmi Lozano Statin 20 mg. --19:23 Delmi Lozano. Medication/allergy information source: the patient. --19:26 Delmi Lozano. Allergies morphine. --19:19 Delmi Lozano. History Arrived by private vehicle. Historian: patient. Accompanied by family. Primary physician ([facility] Department of Nephrology [facility]). Onset. (About a month ago). ( Pt states that he has been seen at [place] in the Cardiology (Jul 31-August 03) department and worked up for chest pain. Was told that there isn't anything wrong with his heart. Pt was then seen in this ER about a week and a half ago for the same thing and was diagnosed with inflamed muscle. Pt states pain is worse and pain medication isn't working.). No difficulty breathing, nausea, vomiting, fever or cough. Treatment TAKE AWAY WORKER: None. PAST MEDICAL HX: Hypertension. No history of diabetes mellitus. Immunizations: seasonal influenza. SOCIAL HX: Former smoker, end date 1996. No alcohol use or drug use. FALL RISK ASSESSMENT: Fall risk assessment completed. No fall risk identified. NUTRITIONAL RISK ASSESSMENT: The nutritional risk assessment revealed no deficiencies. FUNCTIONAL ASSESSMENT: Functional assessment: no impairments noted. LEARNING NEEDS ASSESSMENT: The learning needs assessment revealed no barriers. SKIN INTEGRITY ASSESSMENT: Skin integrity risk assessment completed. No skin integrity risk identified. --19:26 Delmi Lozano. PROBLEMS: Costochondritis. Hyperlipidemia. Chronic Kidney. Exertional Chest Pain. Dyspnea. Immunizations. Cancer. Hypertension. --19:24 Delmi Lozano. ADDITIONAL SURGERIES: Carotidectomy right side. Cholecystectomy. Elbow. --19:24 Delmi Lozano. Assessment The patient states feels the same. --19:26 Delmi Lozano. Interventions ID band on patient. --19:26 Delmi Lozano. PHYSICAL ASSESSMENT 19:27 08/20/16. Ambulatory to room. Patient gowned. GENERAL / NEURO / PSYCH: Alert. Oriented X 4. Appears in no acute distress. HEENT: Mucous membranes are pink. RESPIRATORY: Respirations not labored. Chest pain reproducible (tenderness). Chest wall tenderness. CVS: Pulses within normal limits. Capillary refill less than 2 seconds. GI / : Abdomen soft and nontender. EXTREMITIES: No lower extremity edema. SKIN: Skin is warm and dry. Normal skin turgor. Skin is non-tender. --19:27 Delmi Lozano. NURSING PROGRESS NOTES 19:08/20/16. The plan of care for this patient has been created. Pulse oximeter and NIBP monitor placed on patient; monitor alarms on. Patient gowned. Head of bed elevated. Reassurance given. Two patient identifiers checked. Call light placed in reach. Side rails up x 1. Bed placed in lowest position. Brakes of bed on. Patient ready for evaluation- chart flagged and ED physician notified. ( Pt reports "I know what caused it. I went to the gym [and one of the exercises] caused it."). --19:27 Delmi Lozano EKG time: (1921). EKG was ordered, performed by a tech and shown to the ED physician. --19:39 Demond Ferrera, ER Bacteriology Professor 20:08/20/2016 Hydrocodone-APAP (Hydrocodone-Acetaminophen) PO 7.5/325 mg Tablets 1 tab given. Allergies verified, confirmed 5 rights and sedative warning given to the patient. --20: Delmi Lozano. DISPOSITION / DISCHARGE 20:08/20/16. Departure time: 20:Aug 20 2016. Condition at departure: improved. The goals identified in the patient's plan of care were met. No learning barriers present. Discharge instructions provided and reviewed with the patient and spouse. Reviewed warnings (Patient verbalized understanding of sedation warning. Pt verbalized awareness of warning s/sx listed in dc paperwork.). Reviewed medication(s) side effects, precautions, dosing and course information. Prescription(s) given to the patient (Hydrocodone, Baclofen). Treatments reviewed. Reviewed referral to a primary care physician for followup. Patient and spouse verbalized understanding. Written instructions provided in Romanian. The patient was discharged by the physician. He was discharged home and accompanied by spouse. He left the Emergency Department ambulatory and via private vehicle. Spouse driving. FALL RISK ASSESSMENT: Fall risk assessment completed. No fall risk identified. --20:14 Delmi Lozano 20:12 08/20/16. BP: 154/67. HR: 45. HR. ED physician notified. RR: 16. O2 saturation: 97%. Temp: deferred. Pain level now: 11/09. --20:14 Delmi Lozano. Locked/Released at 08/20/2016 20:14 by Delmi Lozano,
--- NOTE | 2016-08-20 20:03 | ED CLINICAL REPORT ---
Clinical Report - Physicians/Mid Levels [facility] [address] [place] [address] 08/20/2016 19:07 Patient: TAISHA CARDONA Time Seen: 19:30; initial patient contact. Arrived- By private vehicle. Historian- patient. RETURN VISIT: recently seen in this ED by me. Seen now for the same problem as before. HISTORY OF PRESENT ILLNESS Chief Complaint: CHEST PAIN. At its maximum, severity described as moderate. When seen in the E.D., severity described as mild. Modifying factors- (ROM in LUE). It is described as aching and it is described as located in the left chest area. No radiation. This started about 2 weeks ago and is still present. No nausea, vomiting, difficulty breathing or diaphoresis. Similar symptoms previously: None. Recent medical care: The patient was seen recently at this facility in the emergency department. REVIEW OF SYSTEMS No fever, chills, cough, pedal edema or calf pain. All systems otherwise negative, except as recorded above. PAST HISTORY Costochondritis. Hyperlipidemia. Chronic Kidney. Exertional Chest Pain. Dyspnea. Immunizations. Cancer. Hypertension. ADDITIONAL SURGERIES: Carotidectomy right side. Cholecystectomy. Elbow. Medications: Statin 20 mg. Ezetimibe Oral (Tablet 10 mg) 1 tablet. GuaiFENesin ER Oral 2 mg. AmLODIPine Besylate Oral 15 mg. Furosemide Oral 20 mg, daily. Lisinopril Oral 40 mg, daily. Zoloft Oral 100 mg, daily. Spironolactone Oral 25 mg, daily. Vitamin D-3 Oral. Potassium Oral 60 mEq. Phospha 250 Neutral Oral 750 mg, daily. Calcitriol Oral (Capsule 0.5 mcg), daily. Aspirin Oral (Tablet Chewable 81 mg), daily. HydrALAZINE HCl Oral (Tablet 50 mg), 3xdaily. Allergies: morphine. SOCIAL HISTORY Former smoker. No alcohol use or drug use. ADDITIONAL NOTES The nursing notes have been reviewed with agreement regarding the chief complaint, PMH and patient medications and allergies. PHYSICAL EXAM Vital Signs: 08/20/2016 19:26 BP: 164/67. HR: 50. RR: 16. O2 saturation: 98%. Temp: 98.1 F. Have been reviewed. Hypertensive. Bradycardic. Respiratory rate normal. Temperature normal. Oxygen saturation normal. Appearance: Alert. Oriented X3. No acute distress. Eyes: Eyes normal inspection. ENT: Pharynx normal. Neck: Normal inspection. No JVD. CVS: Bradycardia. Heart sounds normal. Rhythm normal. Respiratory: No respiratory distress. Chest pain reproducible with palpation of the lateral chest wall. Breath sounds normal. No splinting, decreased air movement, rales, rhonchi or wheezes. No prolonged expiration. Skin: Normal skin color. No rash. Extremities: No lower extremity edema. Neuro: Oriented X 3. LABS, X-RAYS, AND EKG EKG: EKG time: (1921). Bradycardia. Sinus bradycardia. Normal P waves. Normal MUKESH. Normal QRS complex. Normal axis. Normal ST and T waves, QT and QTc. Prior EKG unavailable. The study has been interpreted contemporaneously by me. The study has been independently viewed by me. The EKG appears to be a good tracing. Interpretation time: 1921. PROGRESS AND PROCEDURES Disposition: Discharged home in good and improved condition. Condition: good. CLINICAL IMPRESSION Acute anterior chest wall myofascial strain INSTRUCTIONS No lifting greater than 10 lbs until released. Prescription Medications: Hydrocodone/APAP 5mg / 325mg: take 1 orally every 6 hours as needed for pain. Dispense fifteen (15). No refill. Baclofen 10 mg: take 1 orally every 8 hours. Dispense thirty (30). No refills. Follow-up: Follow up with your doctor in about three days. Call for an appointment. Blood pressure screening was not performed during this visit because the patient has an active diagnosis of hypertension. (Electronically signed by Huber Warner Dr. 08/20/2016 20:12)
--- NOTE | 2016-08-20 20:03 | ED NURSING NOTES ---
Clinical Report - Nurses [facility] [address] [place] [address] 08/20/2016 19:07 Patient: TAISHA CARDONA TRIAGE Triage time 19:15 Aug 20 2016. Acuity: LEVEL 3. Chief Complaint: CHEST PAIN. :08/20/16. Alert. No acute distress. SEPSIS SCREEN: Sepsis Screen. Negative (no infection suspected/documented). DEIRDRE COMA SCORE: Deirdre Coma Scale: 15- eyes open spontaneously (4); best verbal response- oriented x 4 (5); best motor response- obeys commands (6). --19:26 Delmi Lozano :08/20/16. BP: 164/67. HR: 50. RR: 16. O2 saturation: 98%. Temp: 98.1 F. Pain level now 5/10. --19:26 Delmi Lozano. Weight: 89.8 kg stated. Height/Length: 71 inches Per Patient. BMI: 27.6. --19:25 Delmi Lozano. Medications HydrALAZINE HCl Oral (Tablet 50 mg), 3xdaily. --19:20 Delmi Lozano Aspirin Oral (Tablet Chewable 81 mg), daily. --19:20 Delmi Lozano Calcitriol Oral (Capsule 0.5 mcg), daily. --19:20 Delmi Lozano Phospha 250 Neutral Oral 750 mg, daily. --19:21 Delmi Lozano Potassium Oral 60 mEq. --19:21 Delmi Lozano Vitamin D-3 Oral. --19:21 Delmi Lozano Spironolactone Oral 25 mg, daily. --19:21 Delmi Lozano Zoloft Oral 100 mg, daily. --19:21 Delmi Lozano Lisinopril Oral 40 mg, daily. --19:21 Delmi Lozano Furosemide Oral 20 mg, daily. --19:22 Delmi Lozano AmLODIPine Besylate Oral 15 mg. --19:22 Delmi Lozano GuaiFENesin ER Oral 2 mg. --19:22 Delmi Lozano Ezetimibe Oral (Tablet 10 mg) 1 tablet. --19:22 Delmi Lozano Statin 20 mg. --19:23 Delmi Lozano. Medication/allergy information source: the patient. --19:26 Delmi Lozano. Allergies morphine. --19:19 Delmi Lozano. History Arrived by private vehicle. Historian: patient. Accompanied by family. Primary physician ([facility] Department of Nephrology [facility]). Onset. (About a month ago). ( Pt states that he has been seen at [facility] in the Cardiology (Jul 31-August 03) department and worked up for chest pain. Was told that there isn't anything wrong with his heart. Pt was then seen in this ER about a week and a half ago for the same thing and was diagnosed with inflamed muscle. Pt states pain is worse and pain medication isn't working.). No difficulty breathing, nausea, vomiting, fever or cough. 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 PAST MEDICAL HX: Hypertension. No history of diabetes mellitus. Immunizations: seasonal influenza. SOCIAL HX: Former smoker, end date 1996. No alcohol use or drug use. FALL RISK ASSESSMENT: Fall risk assessment completed. No fall risk identified. NUTRITIONAL RISK ASSESSMENT: The nutritional risk assessment revealed no deficiencies. FUNCTIONAL ASSESSMENT: Functional assessment: no impairments noted. LEARNING NEEDS ASSESSMENT: The learning needs assessment revealed no barriers. SKIN INTEGRITY ASSESSMENT: Skin integrity risk assessment completed. No skin integrity risk identified. --19:26 Delmi Lozano. PROBLEMS: Costochondritis. Hyperlipidemia. Chronic Kidney. Exertional Chest Pain. Dyspnea. Immunizations. Cancer. Hypertension. --19:24 Delmi Lozano. ADDITIONAL SURGERIES: Carotidectomy right side. Cholecystectomy. Elbow. --19:24 Delmi Lozano. Assessment The patient states feels the same. --19:26 Delmi Lozano. Interventions ID band on patient. --19:26 Delmi Lozano. PHYSICAL ASSESSMENT 19:27 08/20/16. Ambulatory to room. Patient gowned. GENERAL / NEURO / PSYCH: Alert. Oriented X 4. Appears in no acute distress. HEENT: Mucous membranes are pink. RESPIRATORY: Respirations not labored. Chest pain reproducible (tenderness). Chest wall tenderness. CVS: Pulses within normal limits. Capillary refill less than 2 seconds. GI / : Abdomen soft and nontender. EXTREMITIES: No lower extremity edema. SKIN: Skin is warm and dry. Normal skin turgor. Skin is non-tender. --19:27 Delmi Lozano. NURSING PROGRESS NOTES 19:08/20/16. The plan of care for this patient has been created. Pulse oximeter and NIBP monitor placed on patient; monitor alarms on. Patient gowned. Head of bed elevated. Reassurance given. Two patient identifiers checked. Call light placed in reach. Side rails up x 1. Bed placed in lowest position. Brakes of bed on. Patient ready for evaluation- chart flagged and ED physician notified. ( Pt reports "I know what caused it. I went to the gym [and one of the exercises] caused it."). --19:27 Delmi Lozano EKG time: (1921). EKG was ordered, performed by a tech and shown to the ED physician. --19:39 Demond Ferrera, ER Worksite Wellness Practitioner 20:08/20/2016 Hydrocodone-APAP (Hydrocodone-Acetaminophen) PO 7.5/325 mg Tablets 1 tab given. Allergies verified, confirmed 5 rights and sedative warning given to the patient. --20: Delmi Lozano. DISPOSITION / DISCHARGE 20:08/20/16. Departure time: 20:Aug 20 2016. Condition at departure: improved. The goals identified in the patient's plan of care were met. No learning barriers present. Discharge instructions provided and reviewed with the patient and spouse. Reviewed warnings (Patient verbalized understanding of sedation warning. Pt verbalized awareness of warning s/sx listed in dc paperwork.). Reviewed medication(s) side effects, precautions, dosing and course information. Prescription(s) given to the patient (Hydrocodone, Baclofen). Treatments reviewed. Reviewed referral to a primary care physician for followup. Patient and spouse verbalized understanding. Written instructions provided in [place]an. The patient was discharged by the physician. He was discharged home and accompanied by spouse. He left the Emergency Department ambulatory and via private vehicle. Spouse driving. FALL RISK ASSESSMENT: Fall risk assessment completed. No fall risk identified. --20:14 Delmi Lozano 20:12 08/20/16. BP: 154/67. HR: 45. HR. ED physician notified. RR: 16. O2 saturation: 97%. Temp: deferred. Pain level now: 11/09. --20:14 Delmi Lozano. Locked/Released at 08/20/2016 20:14 by Delmi Lozano,
--- NOTE | 2016-08-20 20:15 | ED MAR SUMMARY ---
..... Medication Administration Record [address] [place] [address] Patient: TAISHA CARDONA Visit ID: [id number] 76y, M Weight: 89.8 kg Height/Length: 71 in BMI: 27.6 ALLERGIES: morphine Given 20:08 08/20/2016 Delmi Lozano, Medication Administered: HYDROCODONE-APAP [PO] (HYDROCODONE-ACETAMINOPHEN), Dose: 1 tab 7.5/325 mg Tablets PO. Medication Ordered: Hydrocodone-APAP PO 7.5/325 mg (NOW, HIGH ALERT MEDICATION).
--- NOTE | 2016-08-20 20:15 | ED MED RECONCILIATION SUMMARY ---
Patient: TAISHA CARDONA Medication Reconciliation Report [facility] VisitID: [id number] [address] [place] [address] 76y, M Registration Date/Time: 08/20/2016 Weight: 89.8 kg Height/Length: 71 in. BMI: 27.6 ALLERGIES: morphine The patient's Home Medications are listed below: THE FOLLOWING MEDICATIONS NEED TO BE RECONCILED: AmLODIPine Besylate Oral 15 mg Aspirin Oral (81 mg), daily Calcitriol Oral (0.5 mcg), daily Ezetimibe Oral (10 mg) 1 tablet Furosemide Oral 20 mg, daily GuaiFENesin ER Oral 2 mg HydrALAZINE HCl Oral (50 mg), 3xdaily Lisinopril Oral 40 mg, daily Phospha 250 Neutral Oral 750 mg, daily Potassium Oral 60 mEq Spironolactone Oral 25 mg, daily Statin 20 mg Vitamin D-3 Oral Zoloft Oral 100 mg, daily The source(s) of the original Home Medication information: patient The following Medications were given to the patient in the Emergency Department: Hydrocodone-APAP [PO] PO 1 tab, administered: 08/20/2016 8:08:00 PM The following Medications were prescribed to the patient: Hydrocodone/APAP 5mg / 325mg: take 1 orally every 6 hours as needed for pain. Dispense fifteen (15). No refill. -- Huber [address]. Baclofen 10 mg: take 1 orally every 8 hours. Dispense thirty (30). No refills. -- Huber [address] Dr.
--- NOTE | 2016-08-20 20:15 | ED MED RECONCILIATION SUMMARY ---
Patient: TAISHA CARDONA Medication Reconciliation Report [facility] VisitID: [id number] [address] [place] [address] 76y, M Registration Date/Time: 08/20/2016 Weight: 89.8 kg Height/Length: 71 in. BMI: 27.6 ALLERGIES: morphine The patient's Home Medications are listed below: THE FOLLOWING MEDICATIONS NEED TO BE RECONCILED: AmLODIPine Besylate Oral 15 mg Aspirin Oral (81 mg), daily Calcitriol Oral (0.5 mcg), daily Ezetimibe Oral (10 mg) 1 tablet Furosemide Oral 20 mg, daily GuaiFENesin ER Oral 2 mg HydrALAZINE HCl Oral (50 mg), 3xdaily Lisinopril Oral 40 mg, daily Phospha 250 Neutral Oral 750 mg, daily Potassium Oral 60 mEq Spironolactone Oral 25 mg, daily Statin 20 mg Vitamin D-3 Oral Zoloft Oral 100 mg, daily The source(s) of the original Home Medication information: patient The following Medications were given to the patient in the Emergency Department: Hydrocodone-APAP [PO] PO 1 tab, administered: 08/20/2016 8:08:00 PM The following Medications were prescribed to the patient: Hydrocodone/APAP 5mg / 325mg: take 1 orally every 6 hours as needed for pain. Dispense fifteen (15). No refill. -- Huber Warner Dr[address] Baclofen 10 mg: take 1 orally every 8 hours. Dispense thirty (30). No refills. -- Huber Warner Dr.
--- NOTE | 2016-08-20 20:15 | ED DISCHARGE INSTRUCTIONS ---
Patient: TAISHA CARDONA General Instructions [facility] VisitID: [id number] [place] [address] 76y, M Registration Date/Time: 08/20/2016 Acute anterior chest wall myofascial strain INSTRUCTIONS No lifting greater than 10 lbs until released. Prescription Medications: Hydrocodone/APAP 5mg / 325mg: take 1 orally every 6 hours as needed for pain. Dispense fifteen (15). No refill. Baclofen 10 mg: take 1 orally every 8 hours. Dispense thirty (30). No refills. Follow-up: Follow up with your doctor in about three days. Call for an appointment. Blood pressure screening was not performed during this visit because the patient has an active diagnosis of hypertension. ADDITIONAL INFORMATION Chest Strain A strain of the chest is due to stretching and tearing of the muscle fibers between the ribs. This may occur as a result of severe coughing, strenuous lifting or twisting injuries of the upper back. This usually causes increased pain with movement or deep breathing. This may take a few days to a few weeks to heal. Home Care: Rest. Avoid heavy lifting or strenuous exertion. Avoid any activity that causes pain. If you have a severe cough, use a cough syrup such as Robitussin DM (containing dextromethorphan) unless another cough medicine was prescribed. You may use acetaminophen (Tylenol) or ibuprofen (Motrin, Advil) to control pain, unless another medicine was prescribed. [ NOTE: If you have chronic liver or kidney disease or ever had a stomach ulcer or GI bleeding, talk with your doctor before using these medicines.] Follow Up with your doctor as directed. Get Prompt Medical Attention if any of the following occur: A change in the type of pain: if it feels different, becomes more severe, lasts longer, or begins to spread into your shoulder, arm, neck, jaw or back Shortness of breath or increased pain with breathing Cough with dark colored sputum (phlegm) or blood Weakness, dizziness, or fainting Fever of 100.4F (38C) or higher, or as directed by your healthcare provider Hydrocodone Bitartrate, Acetaminophen Oral tablet What is this medicine? ACETAMINOPHEN; HYDROCODONE (a set a MIRTA jeovany fen; juan droe KOE done) is a pain reliever. It is used to treat mild to moderate pain. How should I use this medicine? Take this medicine by mouth. Swallow it with a full glass of water. Follow the directions on the prescription label. If the medicine upsets your stomach, take the medicine with food or milk. Do not take more than you are told to take. Talk to your hair dresser regarding the use of this medicine in children. This medicine is not approved for use in children. What side effects may I notice from receiving this medicine? Side effects that you should report to your doctor or health lawn caretaker as soon as possible: allergic reactions like skin rash, itching or hives, swelling of the face, lips, or tongue breathing problems confusion feeling faint or lightheaded, falls stomach pain yellowing of the eyes or skin Side effects that usually do not require medical attention (report to your doctor or health lawn caretaker if they continue or are bothersome): nausea, vomiting stomach upset What may interact with this medicine? alcohol antihistamines isoniazid medicines for depression, anxiety, or psychotic disturbances medicines for sleep muscle relaxants naltrexone narcotic medicines (opiates) for pain phenobarbital ritonavir tramadol What if I miss a dose? If you miss a dose, take it as soon as you can. If it is almost time for your next dose, take only that dose. Do not take double or extra doses. Where should I keep my medicine? Keep out of the reach of children. This medicine can be abused. Keep your medicine in a safe place to protect it from theft. Do not share this medicine with anyone. Selling or giving away this medicine is dangerous and against the law. Store at room temperature between 15 and 30 degrees C (59 and 86 degrees F). Protect from light. Keep container tightly closed. Throw away any unused medicine after the expiration date. Discard unused medicine and used packaging carefully. Pets and children can be harmed if they find used or lost packages. What should I tell my health care provider before I take this medicine? They need to know if you have any of these conditions: brain tumor Crohn's disease, inflammatory bowel disease, or ulcerative colitis drink more than 3 alcohol-containing drinks per day drug abuse or addiction head injury heart or circulation problems kidney disease or problems going to the bathroom liver disease lung disease, asthma, or breathing problems an unusual or allergic reaction to acetaminophen, hydrocodone, other opioid analgesics, other medicines, foods, dyes, or preservatives or trying to get breast-feeding What should I watch for while using this medicine? Tell your doctor or health lawn caretaker if your pain does not go away, if it gets worse, or if you have new or a different type of pain. You may develop tolerance to the medicine. Tolerance means that you will need a higher dose of the medicine for pain relief. Tolerance is normal and is expected if you take the medicine for a long time. Do not suddenly stop taking your medicine because you may develop a severe reaction. Your body becomes used to the medicine. This does NOT mean you are addicted. Addiction is a behavior related to getting and using a drug for a non-medical reason. If you have pain, you have a medical reason to take pain medicine. Your doctor will tell you how much medicine to take. If your doctor wants you to stop the medicine, the dose will be slowly lowered over time to avoid any side effects. You may get drowsy or dizzy when you first start taking the medicine or change doses. Do not drive, use machinery, or do anything that may be dangerous until you know how the medicine affects you. Stand or sit up slowly. There are different types of narcotic medicines (opiates) for pain. If you take more than one type at the same time, you may have more side effects. Give your health care provider a list of all medicines you use. Your doctor will tell you how much medicine to take. Do not take more medicine than directed. Call emergency for help if you have problems breathing. The medicine will cause constipation. Try to have a bowel movement at least every 2 to 3 days. If you do not have a bowel movement for 3 days, call your doctor or health lawn caretaker. Too much acetaminophen can be very dangerous. Do not take Tylenol (acetaminophen) or medicines that contain acetaminophen with this medicine. Many non-prescription medicines contain acetaminophen. Always read the labels carefully. You have been given the following additional information: Chest Wall Strain Hydrocodone Bitartrate, Acetaminophen Oral tablet No lifting greater than 10 lbs until released. (Electronically signed by Huber Warner Dr. 08/20/2016 20:12)
--- NOTE | 2016-08-20 20:15 | ED MAR SUMMARY ---
..... Medication Administration Record [address] [place] [address] Patient: TAISHA CARDONA Visit ID: [id number] 76y, M Weight: 89.8 kg Height/Length: 71 in BMI: 27.6 ALLERGIES: morphine Given 20:08 08/20/2016 Delmi Lozano, Medication Administered: HYDROCODONE-APAP [PO] (HYDROCODONE-ACETAMINOPHEN), Dose: 1 tab 7.5/325 mg Tablets PO. Medication Ordered: Hydrocodone-APAP PO 7.5/325 mg (NOW, HIGH ALERT MEDICATION).
--- NOTE | 2016-08-20 20:15 | ED DISCHARGE INSTRUCTIONS ---
Patient: TAISHA CARDONA General Instructions [facility] VisitID: [id number] [place] [address] 76y, M Registration Date/Time: 08/20/2016 Acute anterior chest wall myofascial strain INSTRUCTIONS No lifting greater than 10 lbs until released. Prescription Medications: Hydrocodone/APAP 5mg / 325mg: take 1 orally every 6 hours as needed for pain. Dispense fifteen (15). No refill. Baclofen 10 mg: take 1 orally every 8 hours. Dispense thirty (30). No refills. Follow-up: Follow up with your doctor in about three days. Call for an appointment. Blood pressure screening was not performed during this visit because the patient has an active diagnosis of hypertension. ADDITIONAL INFORMATION Chest Strain A strain of the chest is due to stretching and tearing of the muscle fibers between the ribs. This may occur as a result of severe coughing, strenuous lifting or twisting injuries of the upper back. This usually causes increased pain with movement or deep breathing. This may take a few days to a few weeks to heal. Home Care: Rest. Avoid heavy lifting or strenuous exertion. Avoid any activity that causes pain. If you have a severe cough, use a cough syrup such as Robitussin DM (containing dextromethorphan) unless another cough medicine was prescribed. You may use acetaminophen (Tylenol) or ibuprofen (Motrin, Advil) to control pain, unless another medicine was prescribed. [ NOTE: If you have chronic liver or kidney disease or ever had a stomach ulcer or GI bleeding, talk with your doctor before using these medicines.] Follow Up with your doctor as directed. Get Prompt Medical Attention if any of the following occur: A change in the type of pain: if it feels different, becomes more severe, lasts longer, or begins to spread into your shoulder, arm, neck, jaw or back Shortness of breath or increased pain with breathing Cough with dark colored sputum (phlegm) or blood Weakness, dizziness, or fainting Fever of 100.4F (38C) or higher, or as directed by your healthcare provider Hydrocodone Bitartrate, Acetaminophen Oral tablet What is this medicine? ACETAMINOPHEN; HYDROCODONE (a set a MIRTA jeovany fen; juan droe KOE done) is a pain reliever. It is used to treat mild to moderate pain. How should I use this medicine? Take this medicine by mouth. Swallow it with a full glass of water. Follow the directions on the prescription label. If the medicine upsets your stomach, take the medicine with food or milk. Do not take more than you are told to take. Talk to your biosolids management technician regarding the use of this medicine in children. This medicine is not approved for use in children. What side effects may I notice from receiving this medicine? Side effects that you should report to your doctor or health home care giver as soon as possible: allergic reactions like skin rash, itching or hives, swelling of the face, lips, or tongue breathing problems confusion feeling faint or lightheaded, falls stomach pain yellowing of the eyes or skin Side effects that usually do not require medical attention (report to your doctor or health home care giver if they continue or are bothersome): nausea, vomiting stomach upset What may interact with this medicine? alcohol antihistamines isoniazid medicines for depression, anxiety, or psychotic disturbances medicines for sleep muscle relaxants naltrexone narcotic medicines (opiates) for pain phenobarbital ritonavir tramadol What if I miss a dose? If you miss a dose, take it as soon as you can. If it is almost time for your next dose, take only that dose. Do not take double or extra doses. Where should I keep my medicine? Keep out of the reach of children. This medicine can be abused. Keep your medicine in a safe place to protect it from theft. Do not share this medicine with anyone. Selling or giving away this medicine is dangerous and against the law. Store at room temperature between 15 and 30 degrees C (59 and 86 degrees F). Protect from light. Keep container tightly closed. Throw away any unused medicine after the expiration date. Discard unused medicine and used packaging carefully. Pets and children can be harmed if they find used or lost packages. What should I tell my health care provider before I take this medicine? They need to know if you have any of these conditions: brain tumor Crohn's disease, inflammatory bowel disease, or ulcerative colitis drink more than 3 alcohol-containing drinks per day drug abuse or addiction head injury heart or circulation problems kidney disease or problems going to the bathroom liver disease lung disease, asthma, or breathing problems an unusual or allergic reaction to acetaminophen, hydrocodone, other opioid analgesics, other medicines, foods, dyes, or preservatives or trying to get breast-feeding What should I watch for while using this medicine? Tell your doctor or health home care giver if your pain does not go away, if it gets worse, or if you have new or a different type of pain. You may develop tolerance to the medicine. Tolerance means that you will need a higher dose of the medicine for pain relief. Tolerance is normal and is expected if you take the medicine for a long time. Do not suddenly stop taking your medicine because you may develop a severe reaction. Your body becomes used to the medicine. This does NOT mean you are addicted. Addiction is a behavior related to getting and using a drug for a non-medical reason. If you have pain, you have a medical reason to take pain medicine. Your doctor will tell you how much medicine to take. If your doctor wants you to stop the medicine, the dose will be slowly lowered over time to avoid any side effects. You may get drowsy or dizzy when you first start taking the medicine or change doses. Do not drive, use machinery, or do anything that may be dangerous until you know how the medicine affects you. Stand or sit up slowly. There are different types of narcotic medicines (opiates) for pain. If you take more than one type at the same time, you may have more side effects. Give your health care provider a list of all medicines you use. Your doctor will tell you how much medicine to take. Do not take more medicine than directed. Call emergency for help if you have problems breathing. The medicine will cause constipation. Try to have a bowel movement at least every 2 to 3 days. If you do not have a bowel movement for 3 days, call your doctor or health home care giver. Too much acetaminophen can be very dangerous. Do not take Tylenol (acetaminophen) or medicines that contain acetaminophen with this medicine. Many non-prescription medicines contain acetaminophen. Always read the labels carefully. You have been given the following additional information: Chest Wall Strain Hydrocodone Bitartrate, Acetaminophen Oral tablet No lifting greater than 10 lbs until released. (Electronically signed by Huber Warner Dr. 08/20/2016 20:12)
== END 2016-08-20 20:14 | disposition home or self-care (01) ==
LOC: ED SRH 19:07
DX: S29.011A Strain of muscle and tendon of front wall of thorax, initial encounter (principal); X58.XXXA Exposure to other specified factors, initial encounter; Y92.9 Unspecified place or not applicable; Y93.9 Activity, unspecified; Y99.9 Unspecified external cause status; I10 Essential (primary) hypertension; Z79.899 Other long term (current) drug therapy; Z79.82 Long term (current) use of aspirin; Z88.5 Allergy status to narcotic agent